=== PATIENT | female | born 1970 | race Caucasian/White ===

== ENCOUNTER 2021-12-03 12:21 | Emergency (ER) | payer OTHER ==
[~2021-12-03] VITALS: Ht 172.7 cm; Wt 87.6 kg
[2021-12-03 12:37] VITALS: BP 110/91
--- NOTE | 2021-12-03 12:43 | NUR ---
51Y FEMALE BIB SELF DUE TO L SIDED BODY PAIN S/P XYESTERDAY. PER PATIENT HER L SHOULDER AND L ANKLE HER MAIN CONCERNS. NO SWELLING NOTED ON L ANKLE. PT STILL HAS FULL ROM FOR L SHOULDER AND L ANKLE. PT A&OX4 AND AMBULATORY. SKIN INTACT. PT DENIES HITTING HEAD OR AIRBAG DEPLOYMENT FROM [facility]: DENIES NKA
--- NOTE | 2021-12-03 13:37 | NUR ---
xray at patient bedside
[2021-12-03] MEDS ORDERED: IBUP-2213 PO (14:37)
[2021-12-03 14:43] VITALS: BP 118/72
--- NOTE | 2021-12-03 14:44 | NUR ---
Patient discharged with v/s stable. Written and verbal after care instructions ABOUT [facility]Y given and explained. Patient alert, oriented and verbalized understanding of instructions. Ambulatory with steady gait. All questions addressed prior to discharge. ID band removed. Patient advised to follow up with PMD. Rx of IBUPROFEN given. Patient educated on indication of medication including possible reaction and side effects. Opportunity to ask questions provided and answered.
== END 2021-12-03 14:43 | disposition home or self-care (01) ==
LOC: MED 12:21
DX: M25.512 Pain in left shoulder (principal); M25.572 Pain in left ankle and joints of left foot; V59.59XA Passenger in pick-up truck or van injured in collision with other motor vehicles in traffic accident, initial encounter; Y93.89 Activity, other specified; Y92.89 Other specified places as the place of occurrence of the external cause; Y99.8 Other external cause status
CPT/HCPCS: 73030; 73610; 99284